=== PATIENT | female | born 1970 | race Caucasian/White ===

== ENCOUNTER 2022-01-17 09:00 | Day surgery (SDC) | payer OTHER ==
[~2022-01-17] VITALS: Ht 160 cm; Wt 81.6 kg
[2022-01-17] MEDS ORDERED: diphenhydrAMINE 50 MG/ML VIAL ONE (10:53)
[2022-01-17] MEDS ORDERED: fentaNYL citrate 0.05 MG/ML VIAL ONE (10:54)
[2022-01-17] MEDS ORDERED: MIDAZOLAM 2 MG/2 ML VIAL ONE (10:54)
[2022-01-17] MEDS ORDERED: LIDOCAINE 2% 100 MG/5 ML UJET TP ONE (10:55)
[2022-01-17] MEDS ORDERED: fentaNYL citrate 0.05 MG/ML VIAL IVP ONE (15:10)
[2022-01-17] MEDS ORDERED: MIDAZOLAM 2 MG/2 ML VIAL IVP ONE (15:10)
== END 2022-01-17 12:45 | disposition home or self-care (01) ==
LOC: MOR 09:00 → MMU 09:00 → MOR 12:45
PROVIDERS: ATTEND Internal Medicine Gastroenterology
DX: Z12.11 Encounter for screening for malignant neoplasm of colon (principal); K62.1 Rectal polyp; I10 Essential (primary) hypertension; F32.9 Major depressive disorder, single episode, unspecified; Z98.51 Tubal ligation status; Z79.899 Other long term (current) drug therapy; Z20.822 Contact with and (suspected) exposure to COVID-19
CPT/HCPCS: 45385; 87426; J2250; J3010; J7030; J1200